=== PATIENT | female | born 1985 | race Caucasian/White ===

== ENCOUNTER 2020-10-12 10:46 | Emergency (ER) | payer MEDICAID ==
[~2020-10-12] VITALS: Ht 175.3 cm; Wt 77.3 kg
[~2020-10-12 10:46] MED LIST: MACROBID100 MG PO; NORCO 5/325 TAB1 TA1 PO; NOVOLOG100 U/M1; PROZAC20 MG PO
[2020-10-12 10:49] VITALS: Ht 175.3 cm; Wt 77.3 kg
[2020-10-12 11:22] LABS: BASOPHILS 0.5 % (0-2); EOSINOPHILS 2.2 % (0-7); HEMATOCRIT 34.1 % (36.0-48.0); HEMOGLOBIN 11.2 g/dL (12-16); IMMATURE GRANULOCYTES 0.1 % (0-5); LYMPHOCYTE ABS# 2.23 10x3/uL (1.18-3.74); LYMPHOCYTES 24.1 % (15-50); MCH 27.5 pg (26.0-34.0); MCHC 32.8 g/dL (31.0-37.0); MCV 83.8 fL (80.0-100.0); MEAN PLATELET VOLUME 9.4 fL (7.4-10.4); MONOCYTES 5.1 % (2-11); NEUTROPHIL ABS# 6.29 10x3/uL (1.56-6.13); RBC 4.07 10x6/uL (4.00-5.40); RDW 12.3 % (11.5-14.5); WBC 9.3 10x3/uL (4.8-10.8)
[2020-10-12 11:28] LABS: ANION GAP 12.7 mmol/L (8-16); BILIRUBIN - TOTAL 0.19 mg/dL (0.2-1.3); CALCIUM 9.4 mg/dL (8.5-10.1); CARBON DIOXIDE 22.6 mmol/L (21.0-32.0); POTASSIUM - SERUM 4.3 mmol/L (3.5-5.1); PROTEIN - SERUM 7.1 g/dL (6.4-8.2)
[2020-10-12 11:33] LABS: PLATELET COUNT 387 10x3/uL (130-400)
[2020-10-12] MEDS ORDERED: ORAL ANALGESIC9 GM TOPICAL (11:43)
[2020-10-12] MEDS ORDERED: CLEOCIN HCL300 MG PO (11:43)
[2020-10-12] MEDS ORDERED: DICLOFENAC SODI50 MG PO (11:43)
[2020-10-12 11:44] LABS: BILIRUBIN NEGATIVE (NEGATIVE); KETONE NEGATIVE (NEGATIVE); NITRITE NEGATIVE (NEGATIVE); UROBILINOGEN NORMAL mg/dL (< 2)
[2020-10-12 11:45] LABS: BACTERIA FEW HPF (NONE SEEN); SQUAMOUS EPITHELIAL 0-5 HPF (0-4)
[2020-10-12 11:48] LABS: HCG URINE NEGATIVE (NEGATIVE)
[2020-10-12 14:21] VITALS: BP 98/68
== END 2020-10-12 17:19 | disposition home or self-care (01) ==
LOC: D.ER 10:46
PROVIDERS: Family Medicine
DX: S02.5XXA Fracture of tooth (traumatic), initial encounter for closed fracture (principal); E10.65 Type 1 diabetes mellitus with hyperglycemia; K08.89 Other specified disorders of teeth and supporting structures; Z79.4 Long term (current) use of insulin; X58.XXXA Exposure to other specified factors, initial encounter

== ENCOUNTER 2020-11-03 21:03 | Inpatient (IN) | payer MEDICAID ==
[~2020-11-03] VITALS: Ht 175.3 cm; Wt 69.4 kg
[~2020-11-03 21:03] MED LIST changes: +CLEOCIN HCL300 MG PO; +DICLOFENAC SODI50 MG PO; +ORAL ANALGESIC9 GM TOPICAL
[2020-11-03 22:04] LABS: BASOPHILS 1.2 % (0-2); EOSINOPHILS 2.2 % (0-7); HEMATOCRIT 35.5 % (36.0-48.0); HEMOGLOBIN 11.5 g/dL (12-16); LYMPHOCYTES 26.9 % (15-50); MCH 27.9 pg (26.0-34.0); MCHC 32.5 g/dL (31.0-37.0); MCV 85.9 fL (80.0-100.0); MONOCYTES 4.8 % (2-11); NEUTROPHILS 64.9 % (40-80); PLATELET COUNT 460 10x3/uL (130-400); RBC 4.14 10x6/uL (4.00-5.40); RDW 13.2 % (11.5-14.5); WBC 9.4 10x3/uL (4.8-10.8)
[2020-11-03 22:23] LABS: ANION GAP 16.6 mmol/L (8-16); CALCIUM 9.1 mg/dL (8.5-10.1); CARBON DIOXIDE 21.9 mmol/L (21.0-32.0); CREATININE - SERUM 1.3 mg/dL (0.6-1.3); POTASSIUM - SERUM 4.5 mmol/L (3.5-5.1)
[2020-11-03 22:25] LABS: ALBUMIN 3.3 g/dL (3.4-5.0); BILIRUBIN - TOTAL 0.3 mg/dL (0.2-1.3); MAGNESIUM - SERUM 2.3 mg/dL (1.8-2.4); PROTEIN - SERUM 7.6 g/dL (6.4-8.2)
[2020-11-03 22:41] LABS: HCG URINE NEGATIVE (NEGATIVE)
[2020-11-03 22:51] LABS: BILIRUBIN NEGATIVE (NEGATIVE); KETONE NEGATIVE (NEGATIVE); NITRITE NEGATIVE (NEGATIVE); SQUAMOUS EPITHELIAL 0-5 HPF (0-4); UROBILINOGEN NORMAL mg/dL (< 2)
[2020-11-04] VITALS (7 sets, daily range): BP systolic 93–112; BP diastolic 58–74
--- NOTE | 2020-11-04 00:47 | NUR ---
BS RECHECK 135, MD NOTIFIED
--- NOTE | 2020-11-04 00:49 | NUR ---
PATIENT IN WITH C/O HYPERGLYCEMIA, STATES HER BS HAS BEEN HIGH THE LAST FEW DAYS, SHE TAKES TWO TYPES OF INSULIN AND STATES SHE HAS BEEN COMPLIANT.
[2020-11-04] MEDS ORDERED: ZOFRAN ODT4 MG/UDTAB PO (01:27)
[2020-11-04] MEDS ORDERED: REGLAN10 MG PO (03:30)
--- NOTE | 2020-11-04 08:19 | NUR ---
ALERT AND ORIENTED X4. IV TO RIGHT HAND WITH D51/2NS @100 WITH NO S/S OF INFECTION/INFILTRATION.GOOD ROM OF EXT X4 AND W/O S/S OF HYPO/HYPERGLYCEMIA. COMPLAINS OF GENERALIZED ACHING ALL OVER WITH OCCASIONAL NAUSEA. STATED HASN'T HAD BM IN LAST 3 WEEKS. ABDOMEN SOFT AND NONTENDER WITH HYPOACTIVE BS X4. ORIENTED TO ROOM WITH NO COMPLAINTS AT THIS TIME.ENCOURAGED TO USE CALL LIGHT FOR ASSIST.
[2020-11-04 11:09] LABS: BASOPHILS 0.8 % (0-2); EOSINOPHILS 1.6 % (0-7); HEMATOCRIT 36.4 % (36.0-48.0); HEMOGLOBIN 11.8 g/dL (12-16); LYMPHOCYTES 23.5 % (15-50); MCH 27.7 pg (26.0-34.0); MCHC 32.5 g/dL (31.0-37.0); MCV 85.1 fL (80.0-100.0); MEAN PLATELET VOLUME 7.1 fL (7.4-10.4); MONOCYTES 6.3 % (2-11); NEUTROPHILS 67.8 % (40-80); PLATELET COUNT 388 10x3/uL (130-400); RBC 4.28 10x6/uL (4.00-5.40); RDW 13.2 % (11.5-14.5); WBC 8.3 10x3/uL (4.8-10.8)
--- NOTE | 2020-11-04 11:17 | NUR ---
SPOKE WITH LUIS ESTEVES AND DR LUCERO TO NOTIFY OF PATIENT'S BLOOD SUGAR 512. STATES CHANGE PATIENT TO HUMULIN INTERMEDIATE SCALE AND GIVE 20 UNITS.
[2020-11-04 11:35] LABS: ALBUMIN 2.9 g/dL (3.4-5.0); ANION GAP 11.4 mmol/L (8-16); BILIRUBIN - TOTAL 0.3 mg/dL (0.2-1.3); CALCIUM 8.9 mg/dL (8.5-10.1); CARBON DIOXIDE 25.5 mmol/L (21.0-32.0); POTASSIUM - SERUM 4.9 mmol/L (3.5-5.1)
--- NOTE | 2020-11-04 11:48 | NUR ---
IV INFILTRATED TO PATIENT'S RIGHT HAND. REMOVED WITH TIP INTACT. ATTEMPT TO RESITE TO LEFT WRIST WITH 22 GAUGE WITHOUT SUCCESS. SPOKE WITH LUIS ESTEVES TO NOTIFY THAT PATIENT STATES SHE USUALLY HAS TO GET A LINE AND DOES NOT WANT TO BE STUCK ANYMORE. STATES OK TO LEAVE IV OUT AND WILL DC PATIENT WHEN GLUCOSE STABLE. ALSO NOTIFIED LUIS PATIENT'S TEMP IS 100.4 AND PATIENT STATES USUALLY HAS GLUCOSE ISSUES "WHEN SHE IS SEPTIC" AND HAS "BEEN SEPTIC SEVERAL TIMES IN THE PAST." NO FURTHER ORDERS.
[2020-11-04 16:52] LABS: UDS - AMPHET NEGATIVE QUAL (NEGATIVE); UDS - BARB NEGATIVE QUAL (NEGATIVE); UDS - BENZO NEGATIVE QUAL (NEGATIVE); UDS - COCAINE NEGATIVE QUAL (NEGATIVE); UDS - OPIATE POSITIVE QUAL (NEGATIVE); UDS - PCP NEGATIVE QUAL (NEGATIVE); UDS - THC NEGATIVE QUAL (NEGATIVE)
--- NOTE | 2020-11-05 03:03 | NUR ---
I have reviewed this patient and I concur with the Shift Assessment completed by the Licensed Practical Nurse today this shift.
--- NOTE | 2020-11-05 03:25 | NUR ---
PT COMPLAINT ABOUT EXCRUCIATING PAIN IN HER RIGHT HAND, IV INFILTRATED REMOVED ON 11/04. PT WAS GIVE WARM / COLD COMPRESS & PAIN MED HAND CONT TO HURT AND SWOLLEN AND PT STATES IN NOT GETTING BETTER, CASS VISIT WITH PT AND LANEY WAS NOTIFY WELL WILL CONTACT PROVIDER TO COME AND SEE PT.
--- NOTE | 2020-11-05 04:34 | NUR ---
ELEVATED AND PLACED ICE ON RIGHT HAND/WRIST INTERMITTENLY OVER LAST 2 HOURS - NO IMPROVEMENT, NO DECREASE IN SWELLING AND PAIN. NOTIFIED LUIS MCCLELLAND. ORDER FOR VENOUS DOPPLER ULTRASOUND TO R/O DVT AND MUST GET IV ACCESS IN OTHER ARM PER LUIS MCCLELLAND.
[2020-11-05 05:07] VITALS: BP 109/75
--- NOTE | 2020-11-05 05:39 | NUR ---
MULTIPLE UNSUCCESSFUL ATTEMPTS TO GET IV ACCESS ON LEFT ARM. PT HAS NO IV ACCESS AT THE MOMENT.
[2020-11-05 06:04] LABS: BASOPHILS 1.1 % (0-2); EOSINOPHILS 2.5 % (0-7); HEMATOCRIT 31.4 % (36.0-48.0); HEMOGLOBIN 10.3 g/dL (12-16); MCH 27.8 pg (26.0-34.0); MCHC 32.9 g/dL (31.0-37.0); MCV 84.5 fL (80.0-100.0); MEAN PLATELET VOLUME 7.4 fL (7.4-10.4); NEUTROPHILS 46.4 % (40-80); PLATELET COUNT 345 10x3/uL (130-400); RBC 3.72 10x6/uL (4.00-5.40); RDW 13.4 % (11.5-14.5); WBC 6.8 10x3/uL (4.8-10.8)
[2020-11-05 06:35] LABS: ALBUMIN 2.5 g/dL (3.4-5.0); ALKALINE PHOSPHATASE 116 U/L (30-120); ALT (SGPT) 19 U/L (10-68); BILIRUBIN - TOTAL 0.13 mg/dL (0.2-1.3); CALCIUM 8.9 mg/dL (8.5-10.1); CARBON DIOXIDE 23.6 mmol/L (21.0-32.0); CHLORIDE - SERUM 103 mmol/L (98-107); CREATININE - SERUM 0.8 mg/dL (0.6-1.3); POTASSIUM - SERUM 4.4 mmol/L (3.5-5.1); PROTEIN - SERUM 6.1 g/dL (6.4-8.2); SODIUM 135 mmol/L (136-145); UREA NITROGEN 9 mg/dL (7-18); eGFR NON AFRICAN AMERICAN 87 mL/min (90-120)
[2020-11-05 06:36] LABS: CALC OSMOLALITY 281 mosm/kg (275-300); GLUCOSE 338 mg/dL (74-106)
[2020-11-05 08:02] VITALS: Ht 175.3 cm; Wt 69.4 kg
[2020-11-05 08:26] VITALS: BP 110/72
--- NOTE | 2020-11-05 08:50 | NUR ---
PT RESTING QUIETLY IN BED. RESP EVEN AND UNLABORED. PT REPORTS PAIN 8/10 AT THIS TIME, PAIN MED TO BE ADMINISTERED. SWELLING AND REDNESS TO RIGHT HAND, PT REPORTS PREVIOUS IV SITE. NAUSEA VOICED AT THIS TIME. PHENERGAN ADMINISTERED PER PT REQUEST. DENIES FURTHER NEEDS AT THIS TIME. CL WITHIN REACH. ENCOURAGED TO CALL WITH NEEDS. CONTINUE POC
[2020-11-05 11:34] VITALS: BP 99/57
--- NOTE | 2020-11-05 11:34 | NUR ---
PULSE TO RIGHT WRIST AUDIBLE WITH DOPPLER AT THIS TIME
[2020-11-05 17:26] VITALS: BP 139/65
--- NOTE | 2020-11-05 19:26 | NUR ---
PATIENT RESTING IN BED WITH NO S/S OF DISTRESS AND DENIES NEEDS AT THIS TIME. BED IN LOWEST POSITION AND CALL LIGHT IN REACH. ENCOURAGED PATIENT TO CALL WITH NEEDS.
[2020-11-05 20:00] VITALS: BP 120/56
--- NOTE | 2020-11-05 20:39 | NUR ---
ADMINISTERED MEDS PER ORDERS. PATIENT ARMANDO WELL. ENCOURAGED PATIENT TO CALL WITH NEEDS.
[2020-11-05] MEDS ORDERED: LITHIUM CARBON300 MG PO (22:16)
[2020-11-05] MEDS ORDERED: EFFEXOR50 MG PO (22:16)
--- NOTE | 2020-11-06 02:46 | NUR ---
PATIENT'S BLOOD GLUCOSE 61. GAVE PATIENT A SNACK TO BRING GLUCOSE UP.
[2020-11-06 04:00] VITALS: BP 120/57
[2020-11-06 06:05] LABS: ALBUMIN 2.6 g/dL (3.4-5.0); ALKALINE PHOSPHATASE 111 U/L (30-120); ALT (SGPT) 18 U/L (10-68); CALCIUM 8.6 mg/dL (8.5-10.1); CARBON DIOXIDE 25.3 mmol/L (21.0-32.0); CHLORIDE - SERUM 101 mmol/L (98-107); CREATININE - SERUM 0.9 mg/dL (0.6-1.3); POTASSIUM - SERUM 4.2 mmol/L (3.5-5.1); PROTEIN - SERUM 6.4 g/dL (6.4-8.2); SODIUM 135 mmol/L (136-145); eGFR NON AFRICAN AMERICAN 76 mL/min (90-120)
[2020-11-06 06:19] LABS: BILIRUBIN - TOTAL 0.09 mg/dL (0.2-1.3); CALC OSMOLALITY 278 mosm/kg (275-300); GLUCOSE 253 mg/dL (74-106); UREA NITROGEN 13 mg/dL (7-18)
[2020-11-06 07:11] LABS: BASOPHILS 0.6 % (0-2); HEMATOCRIT 33.4 % (36.0-48.0); HEMOGLOBIN 10.8 g/dL (12-16); LYMPHOCYTES 42.9 % (15-50); MCH 27.7 pg (26.0-34.0); MCHC 32.3 g/dL (31.0-37.0); MCV 85.7 fL (80.0-100.0); NEUTROPHILS 48.5 % (40-80); PLATELET COUNT 378 10x3/uL (130-400); RDW 13.7 % (11.5-14.5); WBC 7.4 10x3/uL (4.8-10.8)
[2020-11-06 09:00] VITALS: BP 111/71
--- NOTE | 2020-11-06 09:25 | NUR ---
PT RESTING QUIETLY IN BED. NO ACUTE DISTRESS NOTED AT THIS TIME. REPORTS PAIN 4/10 AT THIS TIME. RIGHT HAND REMAINS SWOLLEN, INTO FOREARM, REDNESS IN HAND FROM FINGERS TO MID PALM. PULSE PALPABLE IN EXTREMITY. DENIES FURTHER NEEDS AT THIS TIME. CL WITHIN REACH. ENCOURAGED TO CALL WITH NEEDS. CONTINUE POC
[2020-11-06 12:53] VITALS: BP 115/76
[2020-11-06 16:51] VITALS: BP 98/54
[2020-11-06 20:00] VITALS: BP 130/62
[2020-11-06] MEDS ORDERED: LISINOPRIL10 MG PO (20:17)
[2020-11-06] MEDS ORDERED: CHRONULAC30 ML PO (20:17)
[2020-11-06] MEDS ORDERED: ROPINIROLE HCL0.5 MG PO (20:17)
[2020-11-06] MEDS ORDERED: BUSPAR 15 MG TA15 MG PO (20:18)
--- NOTE | 2020-11-06 21:40 | NUR ---
ADMINISTERED MEDS PER ORDERS. PATIENT ARMANDO WELL. ENCOURAGED TO CALL WITH NEEDS.
--- NOTE | 2020-11-06 21:40 | NUR ---
PATIENT'S BLOOD GLUCOSE 444 PER LAB RESULTS. ADMINISTERED 20 UNITS OF INSULIN INSTEAD OF 28 PER PATIENT REQUEST.
--- NOTE | 2020-11-07 03:38 | NUR ---
GAVE PATIENT SNACK FOR GLUCOSE LEVEL 44.
[2020-11-07 06:33] LABS: BASOPHILS 0.9 % (0-2); EOSINOPHILS 2.5 % (0-7); HEMATOCRIT 34.1 % (36.0-48.0); HEMOGLOBIN 11.4 g/dL (12-16); LYMPHOCYTES 41.9 % (15-50); MCH 28.5 pg (26.0-34.0); MCHC 33.5 g/dL (31.0-37.0); MCV 85.2 fL (80.0-100.0); MEAN PLATELET VOLUME 7.8 fL (7.4-10.4); MONOCYTES 5.3 % (2-11); NEUTROPHILS 49.4 % (40-80); PLATELET COUNT 368 10x3/uL (130-400); RDW 13.6 % (11.5-14.5)
[2020-11-07 06:36] LABS: ALBUMIN 2.5 g/dL (3.4-5.0); ALKALINE PHOSPHATASE 113 U/L (30-120); ALT (SGPT) 19 U/L (10-68); BILIRUBIN - TOTAL 0.14 mg/dL (0.2-1.3); CALCIUM 8.7 mg/dL (8.5-10.1); CARBON DIOXIDE 27.4 mmol/L (21.0-32.0); CHLORIDE - SERUM 103 mmol/L (98-107); CREATININE - SERUM 0.9 mg/dL (0.6-1.3); POTASSIUM - SERUM 3.9 mmol/L (3.5-5.1); PROTEIN - SERUM 6.4 g/dL (6.4-8.2); SODIUM 135 mmol/L (136-145); UREA NITROGEN 14 mg/dL (7-18); eGFR NON AFRICAN AMERICAN 76 mL/min (90-120)
[2020-11-07 06:38] LABS: CALC OSMOLALITY 279 mosm/kg (275-300); GLUCOSE 257 mg/dL (74-106)
--- NOTE | 2020-11-07 07:26 | NUR ---
PATIENT ASLEEP IN BED EASILY AWAKENED FOR ASSESSMENT, CL IN REACH, PATIENT BLOOD SUGAR WAS 318 THIS MORNING, WILL CONTINUE MONITOR, NO NEEDS VOICED AT THIS TIME
[2020-11-07 09:22] VITALS: BP 112/61
--- NOTE | 2020-11-07 09:48 | NUR ---
ORDERS TO CHECK PATIENT BLOOD SUGAR QH, AT 0830 BLOOD SUGAR WAS 135 AT 0945 BLOOD SUGAR IS 164. CONTINUE WITH PLAN OF CARE
--- NOTE | 2020-11-07 10:42 | NUR ---
I have reviewed this patient and I concur with the Shift Assessment completed by the Licensed Practical Nurse today this shift.
--- NOTE | 2020-11-07 10:52 | NUR ---
TOOK PATIENT BLOOD SUGAR AT 1050, PATIENT IS AT 235, ADVISED PATIENT I WILL BE BACK FOR 1130 CHECK CONTINUE WITH PLAN OF CARE
[2020-11-07 11:35] VITALS: BP 123/74
--- NOTE | 2020-11-07 12:11 | NUR ---
PATIENT BLOOD SUGAR IS 228, PATIENT ADMINISTERED 8U OF INSULIN, NO OTHER NEEDS AT THIS TIME. CONTINUE WITH PLAN OF CARE
--- NOTE | 2020-11-07 15:46 | NUR ---
patient requested pain medication as well as nausea medication. no other needs at this time. continue with plan of care
[2020-11-07 17:28] VITALS: BP 105/73
[2020-11-07 20:00] VITALS: BP 111/70
[2020-11-08] VITALS: BP 118/85
--- NOTE | 2020-11-08 02:44 | NUR ---
PATIENT HAS HAD PAIN MANAGED WITH THE PRESCRIBED PAIN MEDICATIONS. SHE HAD A FSBS 454, I NOTIFIED CARO COOPER AND HE ORDERED A STAT GLUCOSE AND SAID IF THE STAT GLUCOSE CAME BACK OVER 500 TO CAALL HIM BACK, IT WAS 576 I CALLED HIM BACK AND HE 20 UNITS, 20 UNITS GIVEN. SHE IS CURRENTLY RESTING IN BED WITH HER EYES CLOSED.
[2020-11-08 04:00] VITALS: BP 102/70
[2020-11-08 04:30] LABS: BASOPHILS 0.9 % (0-2); EOSINOPHILS 2.4 % (0-7); HEMOGLOBIN 13.1 g/dL (12-16); LYMPHOCYTES 50.4 % (15-50); MCH 27.8 pg (26.0-34.0); MCHC 32.8 g/dL (31.0-37.0); MCV 84.7 fL (80.0-100.0); MEAN PLATELET VOLUME 7.1 fL (7.4-10.4); MONOCYTES 6.1 % (2-11); NEUTROPHILS 40.2 % (40-80); RBC 4.73 10x6/uL (4.00-5.40); RDW 13.4 % (11.5-14.5)
[2020-11-08 04:38] LABS: PLATELET COUNT 447 10x3/uL (130-400); WBC 8.5 10x3/uL (4.8-10.8)
[2020-11-08 04:49] LABS: ALKALINE PHOSPHATASE 119 U/L (30-120); ALT (SGPT) 20 U/L (10-68); BILIRUBIN - TOTAL 0.16 mg/dL (0.2-1.3); CALCIUM 9.4 mg/dL (8.5-10.1); CARBON DIOXIDE 25.7 mmol/L (21.0-32.0); CHLORIDE - SERUM 104 mmol/L (98-107); CREATININE - SERUM 0.9 mg/dL (0.6-1.3); PROTEIN - SERUM 7.3 g/dL (6.4-8.2); SODIUM 140 mmol/L (136-145); UREA NITROGEN 15 mg/dL (7-18); eGFR NON AFRICAN AMERICAN 76 mL/min (90-120)
[2020-11-08 04:52] LABS: CALC OSMOLALITY 276 mosm/kg (275-300); POTASSIUM - SERUM 3.3 mmol/L (3.5-5.1)
[2020-11-08 05:06] LABS: GLUCOSE 39 mg/dL (74-106)
--- NOTE | 2020-11-08 07:03 | NUR ---
PATIENT K+ IS 3.3 THIS MORNING, WILL REPLETE AND RECHECK LEVELS. NO OTHER NEEDS AT THIS TIME. CONTINUE WITH PLAN OF CARE
--- NOTE | 2020-11-08 07:40 | NUR ---
ADMINISTERED PRN MEDICATIONS WITH SCHEDULED MEDICATIONS, PATIENT BLOOD SUGAR IS 310 THIS MORNING, ADMINISTERED 12U OF INSULIN CONTINUE WITH PLAN OF CARE
[2020-11-08 08:38] VITALS: BP 120/80
--- NOTE | 2020-11-08 11:30 | NUR ---
I have reviewed this patient and I concur with the Shift Assessment completed by the Licensed Practical Nurse today this shift.
[2020-11-08 11:45] VITALS: BP 115/78
--- NOTE | 2020-11-08 12:20 | NUR ---
Nutrition follow-up: Pt reports good appetite; reports being diabetic for the last 10 years. Diet: consistent CHO PO intake 100% of meals labs reviewed; glucose under poor control at this time Pt reports living in a usp and wishes DM diet information. RDN will provide DM diet education with printed education before discharge. Follow-up: 11/14/20
--- NOTE | 2020-11-08 17:05 | NUR ---
PATIENT BLOOD SUGAR IS 383 ADMINISTERED SCHEDULED INSULIN PER SCALE. SEARCHED PATIENT ROOM, NO HOME MEDS FOUND PATIENT INQUIRED WHAT I WAS LOOKING FOR, INFORMED PATIENT I WAS MAKING SURE NO HOME MEDS WERE IN ROOM AND AVAILABLE, PATIENT STATED SHE DOES NOT HAVE ANY WITH HER, BP IS 193/102 ASKED HORSE RIDING COACH OR INSTRUCTOR TO RETAKE MANUALLY. PATIENT BP IS NOW 153/92, SPOKE TO LUIS HUNTER AND LISINOPRIL RESTARTED. COTEDNAUE WITH PLAN OF CARE
[2020-11-08 17:14] VITALS: BP 130/92
[2020-11-08 20:00] VITALS: BP 109/64
[2020-11-09] VITALS: BP 92/54
[2020-11-09 04:00] VITALS: BP 99/55
--- NOTE | 2020-11-09 04:43 | NUR ---
PATIENT HAD PAIN MANAGED WITH THE PRESCRIBED PAIN MEDICATIONS, SHE APPEARED TO REST WELL TONIGHT. SHE IS CURRENTLY RESTING IN BED WATCHING TV.
[2020-11-09 07:53] LABS: ALBUMIN 2.8 g/dL (3.4-5.0); ALKALINE PHOSPHATASE 119 U/L (30-120); BILIRUBIN - TOTAL 0.16 mg/dL (0.2-1.3); CALCIUM 9.1 mg/dL (8.5-10.1); CARBON DIOXIDE 25.7 mmol/L (21.0-32.0); CHLORIDE - SERUM 102 mmol/L (98-107); CREATININE - SERUM 0.8 mg/dL (0.6-1.3); PROTEIN - SERUM 6.9 g/dL (6.4-8.2); SODIUM 133 mmol/L (136-145); UREA NITROGEN 12 mg/dL (7-18); eGFR NON AFRICAN AMERICAN 87 mL/min (90-120)
[2020-11-09 07:54] LABS: ALT (SGPT) 26 U/L (10-68); CALC OSMOLALITY 266 mosm/kg (275-300); GLUCOSE 123 mg/dL (74-106); POTASSIUM - SERUM 4.3 mmol/L (3.5-5.1)
[2020-11-09 07:55] LABS: HEMATOCRIT 34.7 % (36.0-48.0); HEMOGLOBIN 11.4 g/dL (12-16); MCH 27.8 pg (26.0-34.0); MCHC 32.9 g/dL (31.0-37.0); MCV 84.5 fL (80.0-100.0); MEAN PLATELET VOLUME 7.6 fL (7.4-10.4); PLATELET COUNT 376 10x3/uL (130-400); RDW 13.5 % (11.5-14.5)
[2020-11-09 08:09] LABS: WBC 6.3 10x3/uL (4.8-10.8)
[2020-11-09 08:23] VITALS: BP 90/56
--- NOTE | 2020-11-09 08:47 | NUR ---
AAOX4 UPON ENTERING. ADMINISTERED MEDICATION, NO DIFFICULTIES. LISONOPRIL HELD D/T LOW BLOOD PRESSURE. 2 UNITS INSULIN PER SLIDING SCALE FOR SUGAR OF 198. SITTING UP RIGHT IN BED, EATING BREAKFAST. DENIES ANY NEEDS AT THIS TIME. BED IN LOWEST POSITION, BED RAILS X2, CALL LIGHT WITHIN REACH. WILL CONTINUE POC. ASSESSMENT PERFORMED AT THIS TIME.
[2020-11-09] MEDS ORDERED: PROTONIX40 MG PO (09:08)
[2020-11-09] MEDS ORDERED: ELIQUIS5 MG PO (09:09)
--- NOTE | 2020-11-09 09:17 | NUR ---
PCP IS PAM GALL??? NEEDS REFERRAL TO [facility]. [facility]ORS NOTE REQUESTED FOR DAYS INPATIENT AND DAYS NEEDED OF ON DISCHARGER
[2020-11-09 11:22] LABS: EOSINOPHILS 1 % (0-7); LYMPHOCYTES 41 % (15-50); MONOCYTES 10 % (2-11); NEUTROPHILS 48 % (40-80); PLATELET ESTIMATE NORMAL
[2020-11-09 11:23] LABS: ROULEAUX OCC
--- NOTE | 2020-11-09 11:38 | NUR ---
10 UNITS INSULIN PER SLIDING SCALE FOR SUGAR OF 388. RESTING IN BED. DENIES FURTHER NEEDS. WILL CONTINUE POC.
[2020-11-09 12:09] VITALS: BP 126/69
--- NOTE | 2020-11-09 12:49 | NUR ---
DISCHRGE INSTRUCTIONS,STATES UNDERSTANDING.INSTRUCTED TO KEEP RECORD OF HER BLOOD SUGAR AND TAKE TO APPT NEXT MONTH WITH ENDOCRONOLOGIST.ALSO INSTRUCTED TO ACTIVATE HER SAVINGS CARD BEFORE GOING TO PHARMACY.
== END 2020-11-09 12:52 | disposition home or self-care (01) | DRG 638 ==
LOC: D.ER 21:03 → OBSVTIME 11-04 04:33 → D.MS 11-04 04:33 → D.EDHOLD 11-04 04:33 → D.MS 11-04 06:51
PROVIDERS: Family Medicine Adult Medicine; Student in an Organized Health Care Education/Training Program; ADMIT Family Medicine; ATTEND Family Medicine
DX: E10.649 Type 1 diabetes mellitus with hypoglycemia without coma (principal); E87.1 Hypo-osmolality and hyponatremia; Z72.0 Tobacco use; G89.29 Other chronic pain; S92.342A Displaced fracture of fourth metatarsal bone, left foot, initial encounter for closed fracture; X58.XXXA Exposure to other specified factors, initial encounter

== ENCOUNTER 2020-11-29 19:29 | Inpatient (IN) | payer BC ==
[~2020-11-29] VITALS: Ht 175.3 cm; Wt 68.6 kg
[~2020-11-29 19:29] MED LIST changes: +BUSPAR 15 MG TA15 MG PO; +CHRONULAC30 ML PO; +EFFEXOR50 MG PO; +ELIQUIS5 MG PO; +LISINOPRIL10 MG PO; +LITHIUM CARBON300 MG PO; +PROTONIX40 MG PO; +REGLAN10 MG PO; +ROPINIROLE HCL0.5 MG PO; +ZOFRAN ODT4 MG/UDTAB PO
[2020-11-29 20:00] VITALS: BP 128/71
[2020-11-29 21:00] VITALS: BP 119/90
--- NOTE | 2020-11-29 21:22 | NUR ---
BS 381 DRIP DROPPED TO 5U/HR PER DR ASKEW
--- NOTE | 2020-11-29 21:52 | NUR ---
ASSISTED PT WITH BEDPAD
[2020-11-29 22:00] VITALS: BP 127/91
--- NOTE | 2020-11-29 22:30 | NUR ---
BS 272 - LOWERED INSULIN DRIP TO 2U/HR PER DR ASKEW
[2020-11-29 23:00] VITALS: BP 118/76
[2020-11-29 23:22] LABS: UDS - AMPHET NEGATIVE QUAL (NEGATIVE); UDS - BARB NEGATIVE QUAL (NEGATIVE); UDS - BENZO NEGATIVE QUAL (NEGATIVE); UDS - COCAINE NEGATIVE QUAL (NEGATIVE); UDS - OPIATE NEGATIVE QUAL (NEGATIVE); UDS - PCP NEGATIVE QUAL (NEGATIVE); UDS - THC NEGATIVE QUAL (NEGATIVE)
--- NOTE | 2020-11-29 23:55 | NUR ---
BS 230
[2020-11-30] VITALS (24 sets, daily range): BP systolic 104–153; BP diastolic 54–98; Ht 175.3 cm; Wt 68.6 kg
[2020-11-30 00:19] LABS: BACTERIA FEW HPF (<MOD); BILIRUBIN NEGATIVE (NEGATIVE); KETONE 4+ mg/dL (< 1+); NITRITE NEGATIVE (NEGATIVE); SQUAMOUS EPITHELIAL 6 HPF (0-4); UROBILINOGEN NORMAL mg/dL (< 2); WHITE CELLS - URINE 29 HPF (0-4)
[2020-11-30 00:34] LABS: CALC OSMOLALITY 304 mosm/kg (275-300); CALCIUM 9.2 mg/dL (8.5-10.1); CARBON DIOXIDE 12.2 mmol/L (21.0-32.0); CHLORIDE - SERUM 110 mmol/L (98-107); CREATININE - SERUM 1.4 mg/dL (0.6-1.3); POTASSIUM - SERUM 3.6 mmol/L (3.5-5.1); SODIUM 148 mmol/L (136-145); UREA NITROGEN 19 mg/dL (7-18); eGFR NON AFRICAN AMERICAN 46 mL/min (90-120)
[2020-11-30 00:35] LABS: APTT 21.7 SECONDS (22.8-39.4)
[2020-11-30 00:37] LABS: D-DIMER-QUANTITATIVE 0.66 ug/mLFEU (0.20-0.54)
[2020-11-30 00:38] LABS: GLUCOSE 252 mg/dL (74-106)
[2020-11-30 01:05] LABS: ALBUMIN 3.1 g/dL (3.4-5.0); ALKALINE PHOSPHATASE 171 U/L (30-120); ALT (SGPT) 30 U/L (10-68); AMYLASE - SERUM 51 U/L (25-115); BILIRUBIN - TOTAL 0.32 mg/dL (0.2-1.3); CKMB 0.7 U/L (0.0-3.6); CREATINE KINASE 43 UL (21-215); LIPASE 107 U/L (73-393); MAGNESIUM - SERUM 2.2 mg/dL (1.8-2.4); PROTEIN - SERUM 7.7 g/dL (6.4-8.2)
[2020-11-30 01:06] LABS: TROPONIN-I < 0.017 ng/mL (0.000-0.060)
[2020-11-30 01:20] LABS: BASOPHILS 0.4 % (0-2); EOSINOPHILS 0 % (0-7); HEMOGLOBIN 11.6 g/dL (12-16); LYMPHOCYTES 7.9 % (15-50); MCH 27.6 pg (26.0-34.0); MCHC 32.1 g/dL (31.0-37.0); MCV 85.8 fL (80.0-100.0); MEAN PLATELET VOLUME 7.5 fL (7.4-10.4); MONOCYTES 4.3 % (2-11); NEUTROPHILS 87.4 % (40-80); RBC 4.19 10x6/uL (4.00-5.40); RDW 14.5 % (11.5-14.5)
[2020-11-30 01:22] LABS: PLATELET COUNT 586 10x3/uL (130-400)
--- NOTE | 2020-11-30 02:31 | NUR ---
DURING ADMISSION, PT WOULD NOT ANSWER MOST QUESTIONS AND APPEARED TO BECOME ANNOYED. UNABLE TO OBTAIN A FULL HISTORY. WILL CONTINUE TO MONITOR.
[2020-11-30 05:37] LABS: BASOPHILS 0.3 % (0-2); EOSINOPHILS 0 % (0-7); HEMATOCRIT 36.8 % (36.0-48.0); HEMOGLOBIN 11.8 g/dL (12-16); LYMPHOCYTES 11.5 % (15-50); MCHC 32.1 g/dL (31.0-37.0); MCV 87.2 fL (80.0-100.0); MEAN PLATELET VOLUME 7.6 fL (7.4-10.4); MONOCYTES 8.9 % (2-11); NEUTROPHILS 79.3 % (40-80); PLATELET COUNT 580 10x3/uL (130-400); RBC 4.23 10x6/uL (4.00-5.40); RDW 14.9 % (11.5-14.5)
[2020-11-30 05:58] LABS: ALBUMIN 3.1 g/dL (3.4-5.0); ANION GAP 21.2 mmol/L (8-16); BILIRUBIN - TOTAL 0.18 mg/dL (0.2-1.3); CALCIUM 8.9 mg/dL (8.5-10.1); CARBON DIOXIDE 19.3 mmol/L (21.0-32.0); CREATININE - SERUM 1.3 mg/dL (0.6-1.3); MAGNESIUM - SERUM 2.1 mg/dL (1.8-2.4); POTASSIUM - SERUM 3.5 mmol/L (3.5-5.1); PROTEIN - SERUM 7.8 g/dL (6.4-8.2)
[2020-12-01] VITALS (12 sets, daily range): BP systolic 98–151; BP diastolic 57–100
[2020-12-01 04:15] LABS: BASOPHILS 1.1 % (0-2); EOSINOPHILS 1.2 % (0-7); HEMATOCRIT 33.3 % (36.0-48.0); HEMOGLOBIN 10.7 g/dL (12-16); LYMPHOCYTES 30.9 % (15-50); MCH 27.9 pg (26.0-34.0); MCHC 32.2 g/dL (31.0-37.0); MCV 86.8 fL (80.0-100.0); MEAN PLATELET VOLUME 7.3 fL (7.4-10.4); MONOCYTES 6.4 % (2-11); NEUTROPHILS 60.4 % (40-80); RBC 3.84 10x6/uL (4.00-5.40); RDW 14.9 % (11.5-14.5)
[2020-12-01 04:21] LABS: PLATELET COUNT 448 10x3/uL (130-400); WBC 9.2 10x3/uL (4.8-10.8)
[2020-12-01 04:35] LABS: ALBUMIN 2.5 g/dL (3.4-5.0); ALKALINE PHOSPHATASE 131 U/L (30-120); ALT (SGPT) 24 U/L (10-68); BILIRUBIN - TOTAL 0.24 mg/dL (0.2-1.3); CALCIUM 8.4 mg/dL (8.5-10.1); CHLORIDE - SERUM 109 mmol/L (98-107); GLUCOSE 132 mg/dL (74-106); MAGNESIUM - SERUM 2.1 mg/dL (1.8-2.4); POTASSIUM - SERUM 3.1 mmol/L (3.5-5.1); PROTEIN - SERUM 6.2 g/dL (6.4-8.2); SODIUM 144 mmol/L (136-145)
[2020-12-01 04:41] LABS: CALC OSMOLALITY 288 mosm/kg (275-300); CREATININE - SERUM 0.9 mg/dL (0.6-1.3); UREA NITROGEN 12 mg/dL (7-18); eGFR NON AFRICAN AMERICAN 76 mL/min (90-120)
[2020-12-01 08:13] LABS: RAPID PLASMA REAGIN Non Reactive (Non Reactive)
--- NOTE | 2020-12-01 08:21 | NUR ---
20G 10 CM MIDLINE PLACED IN LEFT BASILIC. ARM CIRC 28CM. DRESSING PLACED PER POLICY. PT TOLERATED WELL. LOT [id number].
--- NOTE | 2020-12-01 09:19 | NUR ---
PER DR RAINEY INSULIN DRIP STOPPED, PT OK TO BE ON CLEAR DIET ADVANCE TO FULL LIQUID IF TOLERATING CLEARS, PT OK TO TRANSFER TO MED-SURG FLOOR SOON FSBG 97 @ 0900
--- NOTE | 2020-12-01 10:09 | NUR ---
PT RESTING IN BED, NO SIGNS OF DISTRESS, VS STABLE WNL
--- NOTE | 2020-12-01 13:15 | NUR ---
CALLED REPORT TO ESTEBAN HERNANDEZ ON MED 2, ALL QUESTIONS ANSWERED, PT TO TRANSFER SOON
--- NOTE | 2020-12-01 15:19 | NUR ---
PT LEFT VIA BED WITH ASSISTANCE FROM HOSPITAL STAFF
--- NOTE | 2020-12-01 19:48 | NUR ---
RECIEVED UP IN BED WITH EYES CLOSED. AROUSES WITH VERBAL STIMULI. ORIENTED X4. UP AD GUERO. DENIES ANY NEEDS AT THIS TIME.
[2020-12-02 01:38] VITALS: BP 131/91
[2020-12-02 06:37] VITALS: BP 150/90
--- NOTE | 2020-12-02 07:00 | NUR ---
PT LYING IN BED WITH EYES CLOSED. RAISES TO VERBAL STIMULI. RESP EVEN AND UNLABORED. AAO X4. DENIES NEEDS AT THIS TIME. CLIR. BED IN LOWEST POSITION. SIDE RAILS X2
[2020-12-02 07:42] LABS: BASOPHILS 0.6 % (0-2); EOSINOPHILS 0.8 % (0-7); HEMATOCRIT 35.6 % (36.0-48.0); HEMOGLOBIN 11.4 g/dL (12-16); IMMATURE GRANULOCYTES 0.2 % (0-5); LYMPHOCYTE ABS# 1.88 10x3/uL (1.18-3.74); LYMPHOCYTES 29.6 % (15-50); MCV 87.5 fL (80.0-100.0); MONOCYTES 7.4 % (2-11); NEUTROPHILS 61.4 % (40-80); PLATELET COUNT 385 10x3/uL (130-400); RBC 4.07 10x6/uL (4.00-5.40); RDW 13.9 % (11.5-14.5); WBC 6.4 10x3/uL (4.8-10.8)
[2020-12-02 08:05] LABS: ALBUMIN 2.7 g/dL (3.4-5.0); ALKALINE PHOSPHATASE 152 U/L (30-120); ALT (SGPT) 24 U/L (10-68); BILIRUBIN - TOTAL 0.25 mg/dL (0.2-1.3); CALCIUM 8.6 mg/dL (8.5-10.1); CHLORIDE - SERUM 103 mmol/L (98-107); CREATININE - SERUM 0.9 mg/dL (0.6-1.3); MAGNESIUM - SERUM 1.8 mg/dL (1.8-2.4); PROTEIN - SERUM 6.4 g/dL (6.4-8.2); SODIUM 137 mmol/L (136-145); eGFR NON AFRICAN AMERICAN 76 mL/min (90-120)
[2020-12-02 08:06] LABS: CALC OSMOLALITY 283 mosm/kg (275-300); CARBON DIOXIDE 11.9 mmol/L (21.0-32.0); GLUCOSE 309 mg/dL (74-106); POTASSIUM - SERUM 4.2 mmol/L (3.5-5.1); UREA NITROGEN 7 mg/dL (7-18)
--- NOTE | 2020-12-02 12:14 | NUR ---
Nutrition Follow-up: Not tolerating clear liquids. No breakfast eaten this AM. Reports N/V with PO intake. Received Phenergan & Zofran this AM. Also c/o loose stools; noted pt has been receiving Lactulose. Diet: Clear Liquid Wt: 149# (12/01) Labs noted: Glu 309, Alb 2.7 Meds noted: Novolin, Humalog, Lactulose, Protonix, Pepcid, Zofran, Phenergan, Reglan, 1/2NS @ 100, electrolyte protocol -Rec advance diet as tolerated when medically feasible; if PO intake/tolerance does not improve, rec consider nutrition support. -Monitor wt. -RD will follow up within 3-4 days.
[2020-12-02 12:30] VITALS: BP 127/76
--- NOTE | 2020-12-02 19:45 | NUR ---
RECEIVED BEDSIDE REPORT. PT LAYING IN BED A&O X4. MIDLINE TO LEFT UPPER ARM, PATENT AND INFUSING, NO REDNESS OR SWELLING. TELEMETRY IN PLACE, 72 SR. PT ABLE TO AMBUALTE AD GUERO. EDUCATED PT ON CL AND NEEDS, VERBALIZED UNDERSTANDING. BED LOW, CL IN REACH.
[2020-12-02 20:20] VITALS: BP 105/71
[2020-12-03] VITALS (13 sets, daily range): BP systolic 106–159; BP diastolic 76–100
[2020-12-03 06:04] LABS: EOSINOPHILS 0.6 % (0-7); HEMATOCRIT 37.5 % (36.0-48.0); HEMOGLOBIN 11.8 g/dL (12-16); LYMPHOCYTES 31.5 % (15-50); MCH 28.1 pg (26.0-34.0); MCHC 31.6 g/dL (31.0-37.0); MCV 88.9 fL (80.0-100.0); MEAN PLATELET VOLUME 7.3 fL (7.4-10.4); MONOCYTES 6.8 % (2-11); NEUTROPHILS 60.1 % (40-80); PLATELET COUNT 391 10x3/uL (130-400); RBC 4.22 10x6/uL (4.00-5.40); RDW 14.8 % (11.5-14.5); WBC 6.5 10x3/uL (4.8-10.8)
--- NOTE | 2020-12-03 06:09 | NUR ---
PT C/O OF N/V. I HAVE PROVIDED PT WITH BOTH N/V MEDICATIONS AND SHE IS STILL THROWING UP. SHE STATES THAT SHE IS AFRAID OF BEING DISCHARGED AND BELIEVES THAT SHE WILL COME RIGHT BACK. SHE STATES THAT SHE KEEPS HER BS UNDER CONTROL AT HOME AND MAINTAINS HER DM PROPERLY. SHE THINKS SOMETHING IS WRONG AND SHE KNOWS SHE WILL BE RIGHT BACK. THIS NURSE EDUCATED PT THAT HER LABS HAVE IMPROVED AND THAT SHE NEEDS TO SPEAK WITH THE MD ABOUT DISCHARGE PLAN.
[2020-12-03 06:21] LABS: ALBUMIN 2.7 g/dL (3.4-5.0); BILIRUBIN - TOTAL 0.39 mg/dL (0.2-1.3); CALCIUM 8.8 mg/dL (8.5-10.1); CARBON DIOXIDE 10.4 mmol/L (21.0-32.0); CREATININE - SERUM 1.1 mg/dL (0.6-1.3); MAGNESIUM - SERUM 1.9 mg/dL (1.8-2.4); PROTEIN - SERUM 6.3 g/dL (6.4-8.2)
[2020-12-03 06:27] LABS: POTASSIUM - SERUM 4.4 mmol/L (3.5-5.1)
--- NOTE | 2020-12-03 10:36 | NUR ---
PT STATING THAT NO ONE IS DOING ANYTHING FOR HER, THAT SHE IS DYING AND NO ONE IS DOING ANYTHING ABOUT IT. TRIED TO EXPLAINED TO PT THAT SOLAR LAB TECHNICIAN IS WORKING ON GETTING HER A ROOM. PT STATED " I HAVE HEARD THAT ALL MORNING AND NOTHING IS GETTING DONE. IF I CANNOT GET MOVED TO ICU THEN I WANT TO BE TRANSFERED TO ANOTHER HOSPITAL. BECAUSE I NEED TO BE ON AN INSULIN DRIP, I HAVE HAD THIS HAPPEN TO ME BEFORE SO I KNOW WHAT I AM TALKIN ABOUT." PT WANTS TO TALK TO WHO EVER IS IN CHARGE OF THE HOSPITAL. CALLED SOLAR LAB TECHNICIAN AND INFORMED HER THAT PT IS VERY UPSET AND WANTS TO TALK TO HER ABOUT WHY SHE IS NOT BEING MOVED TO ICU YET. ARUNA SOLAR LAB TECHNICIAN STATED THAT SHE IS WORKING ON GETTING PT AN ICU BED, THAT SHE IS TRYING TO CALL DOCTORS TO SEE IF SOMEONE CAN BE MOVED OUT TO THE FLOOR TO GET HER TO ICU AND THAT SHE WILL COME TALK TO PT SOON SHE GETS A CHANCE.
--- NOTE | 2020-12-03 11:09 | NUR ---
PT KEEPS VOMITING, PHENERGAN AND ZOFRAN ARE SCHEDULE FOR Q6PRN. NOT ABLE TO HAVE THEM YET. TRIED CALLING MIKE RAI TO SEE IF I CAN GET AN ORDER FOR IM PHENERGAN INSTEAD OF PO SINCE PT IS NOT ABLE TO KEEP ANYTHING DOWN. PHONE CALL WENT STRAIGHT TO VOICEMAIL. LEFT VOICEMAIL FOR MIKE TO CALL THIS NURSE BACK.
--- NOTE | 2020-12-03 12:27 | NUR ---
PT ARRIVED TO UNIT AT THIS TIME. TRANSFERRED FROM FLOOR BED TO ICU BED BY PT SCOOTING OVER TO OTHER BED. CALLED DR RAINEY FOR FURTHER ORDERS. RECIEVED ORDERS FOR D5 1/2 NS WITH 20MEQ K TO RUN AT 150ML/HR. PT CONNECTED TO MONITOR. VSS.
--- NOTE | 2020-12-03 12:36 | NUR ---
PT TRANSFERED TO ICU ROOM 2302 WITH ALL BELONGINGS. BEDSIDE REPORT GIVEN TO ARLETH HERNANDEZ.
--- NOTE | 2020-12-03 13:00 | NUR ---
INSULIN AND ZOFRAN GTT STARTED PER ORDERS. VOMITING AND EMESIS NOTED WITH PATIENT COMPLAINS OF GENERALIZED PAIN. DR. RAINEY NOTIFIED WITH NEW ORDER NOTED. CONTINUE CRITICAL CARE MONITORING.
--- NOTE | 2020-12-03 15:00 | NUR ---
IVF AND INSULIN GTT AT PRESCRIBED RATE. PATIENT COMPLAINS OF GENERALIZED PAIN WITH FENTANYL PATH NOTED TO LEFT SHOULDER ABOVE TATOO. ENCOURAGED TO USE CALL LIGHT FOR ASSIT.
--- NOTE | 2020-12-03 17:00 | NUR ---
RESTING WITH EYES CLOSED. RESP EVEN AND UNLABORED. CONTINUED CRITICAL MONITORING WITH IVF AND INSULIN GTT MONITORED Q HOUR. NO S/S OF HYPO/HYPERGLYCEMIA NOTED.
[2020-12-04] VITALS (23 sets, daily range): BP systolic 104–159; BP diastolic 67–102
[2020-12-04 04:21] LABS: BASOPHILS 0.8 % (0-2); EOSINOPHILS 0.3 % (0-7); HEMATOCRIT 36.6 % (36.0-48.0); HEMOGLOBIN 11.8 g/dL (12-16); LYMPHOCYTES 20.8 % (15-50); MCH 27.3 pg (26.0-34.0); MCHC 32.2 g/dL (31.0-37.0); MEAN PLATELET VOLUME 7.3 fL (7.4-10.4); MONOCYTES 9.4 % (2-11); NEUTROPHILS 68.7 % (40-80); PLATELET COUNT 407 10x3/uL (130-400); RBC 4.31 10x6/uL (4.00-5.40); RDW 14.5 % (11.5-14.5)
[2020-12-04 04:24] LABS: MCV 84.8 fL (80.0-100.0); WBC 10.5 10x3/uL (4.8-10.8)
[2020-12-04 04:45] LABS: ALBUMIN 2.6 g/dL (3.4-5.0); ALKALINE PHOSPHATASE 139 U/L (30-120); ALT (SGPT) 15 U/L (10-68); BILIRUBIN - TOTAL 0.21 mg/dL (0.2-1.3); CALCIUM 8.6 mg/dL (8.5-10.1); CHLORIDE - SERUM 107 mmol/L (98-107); CREATININE - SERUM 0.9 mg/dL (0.6-1.3); MAGNESIUM - SERUM 1.6 mg/dL (1.8-2.4); PROTEIN - SERUM 6.5 g/dL (6.4-8.2); SODIUM 137 mmol/L (136-145); eGFR NON AFRICAN AMERICAN 76 mL/min (90-120)
[2020-12-04 04:50] LABS: CALC OSMOLALITY 273 mosm/kg (275-300); GLUCOSE 149 mg/dL (74-106); POTASSIUM - SERUM 3.1 mmol/L (3.5-5.1); UREA NITROGEN 3 mg/dL (7-18)
--- NOTE | 2020-12-04 08:00 | NUR ---
ALERT AND ORIENTED X4. PATINET COMPLAINS OF CONTINUED NAUSEA WITH MEDERATEE RELIEF WITH PHERGAN IM WITH ZOFRAN GTT. BOWEL SOUNDS NOTED X4 WITH TENERNESS NOTED TO LLQ ANTERIOR. INSULIN GTT MONITOTED PER PROTOCOL IN CONJUNCTION WITH IVF.ENCOURAGED TO USE CALL LIGHT FOR ASSSIT.
--- NOTE | 2020-12-04 10:00 | NUR ---
DR. RAINEY HERE WITH NEW ORDERS NOTED AFTRE PHYSICAL EXAM DONE. FENTANYL PATCH FOUND ON FLOOR WITH NEW ORDER NOTED.
--- NOTE | 2020-12-04 12:00 | NUR ---
PHENERGAN 12.5MG GIVEN IM FOR NAUSEA AND VOMITING. FENTANYL PATCH FOUND ON FLOOR AND WASTED WITH NEW FENTANYL PATCH APPLIED TO LEFT FRONTAL CHEST WITH CLEAR COVER APPLIED.
--- NOTE | 2020-12-04 14:00 | NUR ---
RESTING WITH EYES CLOSED. RESP EVEN AND UNLABORED. CONTINUED CRITICAL CARE MONITORING WITH INSULIN GTT CONTINUED AND MONITERED PER PROTOCOL. NO CHANGE IN CONDITION NOTED.
--- NOTE | 2020-12-04 15:59 | NUR ---
PATIENT STATES SHE HAS NOT ATTMEPED TO CONSUME ANY OF DIET STATING SHE DIDNT LIKE JELLO. STATED LIKED APPLE JUICE WITH JUICE GIVEN. IVF GIVEN PER ORDERS AND UP TO BSC AND VOIDED. NO CHANGE IN CONDITION.
--- NOTE | 2020-12-04 16:30 | NUR ---
PATIENT CONSUMED 237CC APPLE JUICE AT LUNCH. DENIES ANY NAUSEA AT THIS TIME. INSULIN GTT INFUSING PER PROTOCOL. UP TO BSC ADLIB. CRITICAL CARE VITALS AND ASSESSMENTS DONE
--- NOTE | 2020-12-04 17:10 | NUR ---
PHENERGAN 12.5CC GIVEN TO RIGHT THIGH FOR NAUSEA WITH NO VOMITING NOTED.CRITICAL CARE MONITORING CONTINUED. DENEIS ANY PAIN AT THIS TIME.
[2020-12-05] VITALS (17 sets, daily range): BP systolic 88–168; BP diastolic 54–107
[2020-12-05 01:16] LABS: POTASSIUM - SERUM 5.3 mmol/L (3.5-5.1)
[2020-12-05 04:42] LABS: BASOPHILS 0.9 % (0-2); EOSINOPHILS 0.5 % (0-7); HEMATOCRIT 36.4 % (36.0-48.0); HEMOGLOBIN 11.9 g/dL (12-16); LYMPHOCYTES 24.3 % (15-50); MCH 27.9 pg (26.0-34.0); MCHC 32.7 g/dL (31.0-37.0); MCV 85.3 fL (80.0-100.0); MEAN PLATELET VOLUME 7.7 fL (7.4-10.4); MONOCYTES 6.4 % (2-11); NEUTROPHILS 67.9 % (40-80); PLATELET COUNT 370 10x3/uL (130-400); RBC 4.27 10x6/uL (4.00-5.40); RDW 14.5 % (11.5-14.5); WBC 8.3 10x3/uL (4.8-10.8)
[2020-12-05 05:03] LABS: ALBUMIN 2.5 g/dL (3.4-5.0); BILIRUBIN - TOTAL 0.19 mg/dL (0.2-1.3); CALCIUM 8.9 mg/dL (8.5-10.1); CARBON DIOXIDE 17.8 mmol/L (21.0-32.0); CREATININE - SERUM 1.1 mg/dL (0.6-1.3); PROTEIN - SERUM 6.4 g/dL (6.4-8.2)
[2020-12-05 05:18] LABS: ANION GAP 18.9 mmol/L (8-16); POTASSIUM - SERUM 3.7 mmol/L (3.5-5.1)
--- NOTE | 2020-12-05 06:30 | NUR ---
1945 FSBS 98, 109 ON RECHECK. 0030 FSBS 440, 472 ON RECHECK. PT REPORTS "SIPPING ON SOME APPLE JUICE" SHE RECEIVED WITH HER DINNER. ALSO REPORTS POLYURIA AND POLYDIPSIA. EDUCATED PT ON SUGAR CONTENT, PT VERBALIZED UNDERSTANDING. NEW ORDERS RECEIVED, SEE EMAR. 0210 FSBS 392, INSULIN ADMINISTERED, PER SLIDING SCALE. 0500 FSBS 135, NO INSULIN PER SLIDING SCALE. PT REQUESTED BEEF BROTH, PROVIDED. 0600 PT REPORTS TOLERATING BEEF BROTH WELL " LONG I SIP ON IT." 0645 FSBS 87, NO INSULIN PER SLIDING SCALE.
--- NOTE | 2020-12-05 09:15 | NUR ---
Nutrition follow-up/reassessment: Pt back in ICU Diet order: cleal liquids x 5 days; pt still with nausea Ht: 5'9" Wt: 149# Meds: insulin, reglan Dx: DKA, gastroparesis, drug abuse (meth) Labs reviewed; A1c: 11.2% Pt received diet information on last admission; refused education. Estimated needs: 2199-4175 kcal 25-30 kcal/kg Act BW (25-30 kcal/kg), 67-80 gm protein (1.0-1.2 gm/kg) 7958-1156 ml fluid or per MD Nutrition diagnosis: Inadequate oral intake R/T continued nausea AEB pt on clear liquids x 5 days. Nutrition goals: - Nutrition support started within 24-48 hours if diet unable to advance past clears. - Meet est fluid needs - Stable wt - Glucose maintained at or near normal range Nutrition interventions: Recommend starting ProcalAmine PPN @ 100 ml/hr due to clears x [address] days[address] RDN will follow-up on pts progress in 2-3 dyas.
--- NOTE | 2020-12-05 12:30 | NUR ---
1 LITER NS BOLUS PER DR HALEY.
[2020-12-06] VITALS (10 sets, daily range): BP systolic 85–174; BP diastolic 49–114
--- NOTE | 2020-12-06 10:28 | NUR ---
REPORT CALLED TO DAVID GROVER. PT WILL BE TRANSPORTED TO 213.
--- NOTE | 2020-12-06 11:12 | NUR ---
ARRIVE TO ROOM VIA WHEELCHAIR FROM ICU. REPORT FROM DAVID LAYTON. ALERT AND ORIENTED X4. AMBULATES TO BED. ZOFRAN DRIP INFUSING ORDERED. IV FLUIDS INFUSING ORDERED. GLUCOSE 83. NO SIGNS OF DISTRESS. DENIES ANY NEEDS. CONTINUE PLAN OF CARE AND SAFETY PRECAUTIONS.
[2020-12-06 12:36] LABS: BASOPHILS 1.1 % (0-2); EOSINOPHILS 2.2 % (0-7); HEMATOCRIT 34.8 % (36.0-48.0); HEMOGLOBIN 11.1 g/dL (12-16); LYMPHOCYTES 45.3 % (15-50); MCH 27.4 pg (26.0-34.0); MCV 85.7 fL (80.0-100.0); MEAN PLATELET VOLUME 7.8 fL (7.4-10.4); MONOCYTES 7.2 % (2-11); NEUTROPHILS 44.2 % (40-80); PLATELET COUNT 303 10x3/uL (130-400); RBC 4.06 10x6/uL (4.00-5.40); RDW 14.6 % (11.5-14.5); WBC 6.9 10x3/uL (4.8-10.8)
[2020-12-06 12:58] LABS: ALBUMIN 2.5 g/dL (3.4-5.0); ALKALINE PHOSPHATASE 128 U/L (30-120); ALT (SGPT) 18 U/L (10-68); AMYLASE - SERUM 39 U/L (25-115); BILIRUBIN - TOTAL 0.27 mg/dL (0.2-1.3); CALCIUM 8.1 mg/dL (8.5-10.1); CARBON DIOXIDE 19.3 mmol/L (21.0-32.0); CHLORIDE - SERUM 103 mmol/L (98-107); LIPASE 79 U/L (73-393); POTASSIUM - SERUM 3.6 mmol/L (3.5-5.1); PROTEIN - SERUM 5.7 g/dL (6.4-8.2); SODIUM 137 mmol/L (136-145); THYROID STIMULATING HORMONE 0.03 uIU/mL (0.36-3.74); UREA NITROGEN 5 mg/dL (7-18)
[2020-12-06 13:11] LABS: CALC OSMOLALITY 270 mosm/kg (275-300); CREATININE - SERUM 0.7 mg/dL (0.6-1.3); GLUCOSE 104 mg/dL (74-106); eGFR NON AFRICAN AMERICAN > 90 mL/min (90-120)
--- NOTE | 2020-12-06 20:00 | NUR ---
ASSESSMENT COMPLETED ON THIS PT. PT WAS ADMITTED FOR DKA TO THE ER. SHE WAS TRANSFERED TO THIS UNIT TODAY. SHE IS AWAKE/ALERT/ORIENTED. SHE GETS UP TO THE BR ALONE. SHE HAS NOT ASKED FOR ANY ASSISTANCE. SHE HAS A LEFT UPPER ARM MIDLINE WITH NS INFUSING AT 125 ML/HR. PT RECENTLY HAD PROCEDURE TO LEFT GREAT TOE AND THIS IS FINE. PT HAS A HX OF USING METH AND OPIATES. SHE HAS BS ACHS. HER BS WAS 119 AND DID NOT RECEIVE ANY INSULIN. SHE IS ACTUALLY VERY PLEASANT TO WORK WITH SHE IS VERY COMPLIANT AND COOPERATIVE. SHE HAS NO C/O OR NEEDS AT THIS TIME
[2020-12-07 00:52] VITALS: BP 101/65
[2020-12-07 05:20] VITALS: BP 141/84
[2020-12-07 06:55] LABS: HEMATOCRIT 34.9 % (36.0-48.0); HEMOGLOBIN 11.3 g/dL (12-16); MCH 27.6 pg (26.0-34.0); MCHC 32.2 g/dL (31.0-37.0); MCV 85.7 fL (80.0-100.0); MEAN PLATELET VOLUME 7.7 fL (7.4-10.4); PLATELET COUNT 274 10x3/uL (130-400); RBC 4.07 10x6/uL (4.00-5.40); RDW 14.2 % (11.5-14.5)
[2020-12-07 07:06] LABS: ALBUMIN 2.2 g/dL (3.4-5.0); ALKALINE PHOSPHATASE 116 U/L (30-120); ALT (SGPT) 18 U/L (10-68); BILIRUBIN - TOTAL 0.16 mg/dL (0.2-1.3); CALC OSMOLALITY 281 mosm/kg (275-300); CALCIUM 8.2 mg/dL (8.5-10.1); CHLORIDE - SERUM 107 mmol/L (98-107); CREATININE - SERUM 0.7 mg/dL (0.6-1.3); GLUCOSE 264 mg/dL (74-106); POTASSIUM - SERUM 3.7 mmol/L (3.5-5.1); PROTEIN - SERUM 5.5 g/dL (6.4-8.2); SODIUM 138 mmol/L (136-145); UREA NITROGEN 4 mg/dL (7-18); eGFR NON AFRICAN AMERICAN > 90 mL/min (90-120)
[2020-12-07 07:36] LABS: WBC 4.6 10x3/uL (4.8-10.8)
--- NOTE | 2020-12-07 08:03 | NUR ---
AM ROUNDING DONE WITH PATIENT SITTING UP IN THE BED. DENIES NEEDS AT THIS TIME. ON HEART MONITOR SHOWING SR, HR 79. ON ROOM AIR. LEFT UPPER ARM WITH MIDLINE, DRESSING DRY AND INTACT. NS INFUSING AT 125 CC/HR, ORANGE SWAB CAPS IN USE. ON EP, LAB VALUES ARE WNL.
--- NOTE | 2020-12-07 08:59 | NUR ---
DRESSING TO LEFT UPPER ARM MIDLINE CHANGED USING STERILE TECHNIQUE. DATED.
[2020-12-07 11:18] LABS: T4 THYROXINE 6.6 ug/dL (4.7-13.3); THYROID STIMULATING HORMONE 0.04 uIU/mL (0.36-3.74)
--- NOTE | 2020-12-07 13:44 | NUR ---
Nutrition Follow-up: Diet has been advanced to regular. Spoke with pt following breakfast this AM. Reports some nausea 2/2 eating too quickly but no vomiting. Frequent BMs 2/2 Lactulose. Diet: Regular Wt: 151# (12/06) Labs noted: Glu 264, Ca 8.2, Alb 2.2 Meds noted: Humalog, Novolin, Reglan, Phenergan, Pepcid, Zofran, Lactulose, Protonix, NS @ 125, electrolyte protocol -Change to consistent carb diet. -Encourage PO intake and honor food preferences within diet restrictions. -Monitor wt. -RD will follow up within 2-5 days.
[2020-12-07 14:09] LABS: ANISOCYTOSIS OCC; EOSINOPHILS 3 % (0-7); LYMPHOCYTES 44 % (15-50); MONOCYTES 10 % (2-11); NEUTROPHILS 43 % (40-80); PLATELET ESTIMATE NORMAL
--- NOTE | 2020-12-07 19:30 | NUR ---
PT IN BED, EYES CLOSED, RESP EVEN AND UNLABORED, NO DISTRESS NOTED, CL IN REACH, SR UP X 2.
[2020-12-08 00:13] VITALS: BP 91/59
[2020-12-08 03:05] VITALS: BP 103/70
--- NOTE | 2020-12-08 04:08 | NUR ---
I have reviewed this patient and I concur with the Shift Assessment completed by the Licensed Practical Nurse today this shift.
[2020-12-08 06:16] LABS: BASOPHILS 0.8 % (0-2); EOSINOPHILS 2.6 % (0-7); HEMATOCRIT 32.9 % (36.0-48.0); HEMOGLOBIN 10.8 g/dL (12-16); LYMPHOCYTES 44.7 % (15-50); MCH 28.1 pg (26.0-34.0); MCHC 32.7 g/dL (31.0-37.0); MCV 85.9 fL (80.0-100.0); MEAN PLATELET VOLUME 7.9 fL (7.4-10.4); MONOCYTES 9.6 % (2-11); NEUTROPHILS 42.3 % (40-80); PLATELET COUNT 271 10x3/uL (130-400); RBC 3.83 10x6/uL (4.00-5.40); RDW 14.6 % (11.5-14.5); WBC 5.3 10x3/uL (4.8-10.8)
[2020-12-08 06:27] LABS: ALBUMIN 2.1 g/dL (3.4-5.0); ALKALINE PHOSPHATASE 120 U/L (30-120); ALT (SGPT) 17 U/L (10-68); CARBON DIOXIDE 25.6 mmol/L (21.0-32.0); CHLORIDE - SERUM 105 mmol/L (98-107); CREATININE - SERUM 0.7 mg/dL (0.6-1.3); PROTEIN - SERUM 5.3 g/dL (6.4-8.2); SODIUM 136 mmol/L (136-145); eGFR NON AFRICAN AMERICAN > 90 mL/min (90-120)
[2020-12-08 06:28] LABS: CALC OSMOLALITY 284 mosm/kg (275-300); GLUCOSE 374 mg/dL (74-106); POTASSIUM - SERUM 4.3 mmol/L (3.5-5.1); UREA NITROGEN 7 mg/dL (7-18)
--- NOTE | 2020-12-08 07:40 | NUR ---
Lying in bed, awake/alert/oriented, T/R self ad rehana, cont of B/B with BRPs per self ad rehana, denies pain/other discomfort at this time, call light/phone/water within reach, no s/s of acute distress observed.
[2020-12-08 09:00] VITALS: BP 89/58
[2020-12-08 12:00] VITALS: BP 109/70
--- NOTE | 2020-12-08 17:00 | NUR ---
FSBS 460, called for stat blood glucose.
--- NOTE | 2020-12-08 17:30 | NUR ---
Stat glucose not obtained at this time, gave 28 units Humalog as ordered, tolerated well.
--- NOTE | 2020-12-08 18:34 | NUR ---
Blood glucose 525, paged TAB BUILDER Amadou, reported glucose and insulin given, Amadou states to recheck at 2100 and if still above 400 to give 70/30 held at 1730.
--- NOTE | 2020-12-08 21:50 | NUR ---
PATIENT'S MIDLINE IS LEAKING AND NOT PATENT. REMOVED WITH CATH TIP INTACT. PATIENT TOLERATED WELL BUT WISHES NOT TO BE STUCK AGAIN FOR A PIV. PATIENTS STATES SHE IS DC'ING IN THE AM ANYWAYS.
[2020-12-09 02:22] VITALS: BP 91/55
[2020-12-09 05:22] VITALS: BP 118/87
[2020-12-09 06:19] LABS: BASOPHILS 0.8 % (0-2); EOSINOPHILS 3.8 % (0-7); HEMATOCRIT 35.4 % (36.0-48.0); HEMOGLOBIN 11.5 g/dL (12-16); LYMPHOCYTES 45.1 % (15-50); MCHC 32.5 g/dL (31.0-37.0); MCV 86.2 fL (80.0-100.0); MEAN PLATELET VOLUME 8.7 fL (7.4-10.4); MONOCYTES 9.4 % (2-11); NEUTROPHILS 40.9 % (40-80); PLATELET COUNT 281 10x3/uL (130-400); RDW 14.8 % (11.5-14.5); WBC 5.1 10x3/uL (4.8-10.8)
[2020-12-09 06:36] LABS: ALBUMIN 2.4 g/dL (3.4-5.0); ALKALINE PHOSPHATASE 123 U/L (30-120); ALT (SGPT) 20 U/L (10-68); BILIRUBIN - TOTAL 0.23 mg/dL (0.2-1.3); CALCIUM 8.6 mg/dL (8.5-10.1); CARBON DIOXIDE 22.4 mmol/L (21.0-32.0); CHLORIDE - SERUM 100 mmol/L (98-107); CREATININE - SERUM 0.8 mg/dL (0.6-1.3); POTASSIUM - SERUM 4.8 mmol/L (3.5-5.1); SODIUM 134 mmol/L (136-145); eGFR NON AFRICAN AMERICAN 87 mL/min (90-120)
[2020-12-09 07:10] LABS: CALC OSMOLALITY 281 mosm/kg (275-300); GLUCOSE 369 mg/dL (74-106); UREA NITROGEN 9 mg/dL (7-18)
[2020-12-09 09:00] VITALS: BP 108/61
[2020-12-09] MEDS ORDERED: BUSPAR 15 MG TA15 MG PO (14:08)
[2020-12-09] MEDS ORDERED: REGLAN10 MG PO ×2 (14:09)
[2020-12-09] MEDS ORDERED: CHRONULAC30 ML PO (14:09)
[2020-12-09] MEDS ORDERED: HUMULIN 70100 UNIT/1 SC (14:10)
[2020-12-09] MEDS ORDERED: FLAGYL500 MG PO (14:11)
[2020-12-09] MEDS ORDERED: DIFLUCAN150 MG PO (14:12)
[2020-12-09 16:00] VITALS: BP 110/68
--- NOTE | 2020-12-09 23:00 | NUR ---
1929 INITIAL ROUNDS, PT RESTING IN BED. HAS LEFT NUMEROUS MESSAGES WITH HER BOYFRIEND THAT SHE HAS BEEN DISCHARGED AND NEEDS TO BE PICKED UP. SHE HAS ALSO CALLED HER SISTER WHO DOES NOT HAVE THE FUNDS/GAS TO COME FROM [place] TO PICK PT UP. PT HAS NO ONE ELSE IN HER FAMILY THAT CAN COME PICK HER UP. 1929 SPOKE WITH DIRECTOR NURSES' REGISTRY, JORDAN. REPORTED PT NOT ABLE TO GET ANYONE TO PICK HER UP. PT NEEDS TRANSPORT TO [place]. ASKED IF POSSIBLE TO SEND PT BY CAB/UBER. DIRECTOR NURSES' REGISTRY SAYING THAT IS NOT POSSIBLE, TOO EXPENSIVE. TO KEEP CALLING PATIENTS FAMILY/ANY NUMBERS ON CHART. 2099 PT HAS FALLEN ASLEEP. STILL WAITING TO SEE IF BOYFRIEND ARRIVES TO PICK HER UP BASED ON THE MANY MESSAGES SHE LEFT FOR HIM. 2229 REMINDED DIRECTOR NURSES' REGISTRY THAT PT WAS STILL HERE. CLARIFIED ON IF ANY MEDS SHOULD BE GIVEN. DIRECTOR NURSES' REGISTRY SAID TO PROVIDE MEDICATIONS. 2299 AWAKENED PT AND TOLD HER SINCE SHE WAS STILL HERE, ALL ROUTINE BEDTIME MEDS WOULD BE PROVIDED. PT UPSET THAT BOYFRIEND STILL NOT HERE. SHE CALLED AGAIN IN FRONT OF THIS NURSE AND THIS TIME, HE ANSWERED. CALL COULD BE HEARD BY THIS NURSE WHERE BOYFRIEND TOLD PATIENT HAD SHE "LEARNED HER LESSON" BY HIM NOT ANSWERING HER CALLS OR COMING TO GET HER. PT CRYING ON PHONE TO BOYFRIEND SAYING SHE JUST NEEDED TO BE PICKED UP. BOYFRIEND TELLS HER HE WILL THINK ABOUT IT. PT VERY DISTRAUGHT WHEN OFF PHONE.
--- NOTE | 2020-12-09 23:54 | NUR ---
PT'S BOYFRIEND HAS ARRIVED AND PT NOW DISCHARGED TO HIS CARE TO HOME PER PRIVATE VEHICLE.
--- NOTE | 2020-12-11 17:49 | MORECARE ---
CASE MANAGEMENT DISCHARGE SUMMARY PATIENT: GUEVARA TAMAYO UNIT: [id number] ADM DATE: 11/29/20 AGE: 35 : 87 SEX: F ROOM/BED: [facility] AUTHOR: YOUSIF,DOC PHYSICIAN: REFERRING PHYSICIAN: CAMERON RAINEY MD DATE OF SERVICE: 12/11/20 Case Management Discharge Planning Summary DCP REVIEW SUMMARY ANTICIPATED D/C DATE: EXPECTED LOS : CASE STATUS: DCP Complete INITIAL REVIEW: 11/29/2020 INITIAL REVIEWER: Umm Rajput FINAL DISCHARGE DISPOSITION: : FINAL REVIEWER: FINAL REVIEW DATE: LACE: UPDATED BY: [email or web address]: Radha Ross on 11/30/20 11:01 CT QUESTION: ANSWER Length of Stay (Prior Admit): 2 Days Acute Admission: Inpatient Comorbidity: (1PT) DM no complications, Cerebrovascular Disease, Hx of VA, PVD, PUD Comorbidity Total Score 1 PT Emergency Room visits during previous 6 months: 2 Visits DCP Focus Questions & Answers QUESTION: ANSWER : PATIENT: GUEVARA TAMAYO ENCOUNTER: [id number] MEDICAL RECORD#: [id number] ADMISSION DATE: 11/29/2020 DISCHARGE DATE: 12/09/2020 ATTENDING MD: : AGE: 35 MARITAL STATUS: S DC PLAN ID: [id number] FACILITY: [facility] PRINTED ON: 12/11/20 17:49 CT All edits/amendments must be made on the electronic document DICTATION DATE: 12/11/201748 MANAGER THERAPY: DM 12/11/201748 RPT#: [id number] DC DATE:12/09/20 STATUS: DIS IN [facility] [address] [place] [address] END OF REPORT
== END 2020-12-09 23:53 | disposition home or self-care (01) | DRG 638 ==
LOC: D.ER 19:29 → D.ICU 20:53 → D.EDHOLD 20:53 → D.ICU 23:46 → D.M2 12-01 15:21 → D.ICU 12-03 12:26 → D.M2 12-06 10:55
PROVIDERS: Emergency Medicine; Family Medicine; ADMIT Family Medicine; ATTEND Family Medicine
DX: E10.10 Type 1 diabetes mellitus with ketoacidosis without coma (principal); N17.9 Acute kidney failure, unspecified; N39.0 Urinary tract infection, site not specified; E87.0 Hyperosmolality and hypernatremia; Z79.4 Long term (current) use of insulin; E87.8 Other disorders of electrolyte and fluid balance, not elsewhere classified; Z72.51 High risk heterosexual behavior; F15.10 Other stimulant abuse, uncomplicated; F11.10 Opioid abuse, uncomplicated; E10.43 Type 1 diabetes mellitus with diabetic autonomic (poly)neuropathy; K31.84 Gastroparesis; F31.9 Bipolar disorder, unspecified; E88.09 Other disorders of plasma-protein metabolism, not elsewhere classified